=== PATIENT | female | born 1975 | race Caucasian/White ===

== ENCOUNTER 2017-08-27 21:22 | Emergency (ER) | payer BC ==
[2017-08-27] MEDS ORDERED: Sodium Chloride 0.9% 1,000 ML IV ONE (22:17)
[2017-08-27] MEDS ORDERED: Ketorolac 30 MG/ML SDV IVPUSH ONE (22:17)
[2017-08-27] MEDS ORDERED: methylPREDNISolone Sodium Succinate 125 MG/2 ML SDV IVPUSH ONE (22:17)
[2017-08-27] MEDS ORDERED: Sodium Chloride 0.9% 2.5 ML Syringe FLUSH PRN (22:17)
[2017-08-27] MEDS ORDERED: Sodium Chloride 0.9% 10 ML Syringe FLUSH PRN (22:17)
--- NOTE | 2017-08-27 22:22 | EDM.PDOC ---
ED HPI GENERAL MEDICAL PROBLEM - General Chief Complaint: Neuro Symptoms/Deficits Stated Complaint: TONGUE SWOLLEN/TIGHTNESS IN CHEST Time Seen by Provider: 08/27/17 22:04 - History of Present Illness INITIAL COMMENTS - FREE TEXT/NARRATIVE: HISTORY AND PHYSICAL: History of present illness: The patient is a 42-year-old female with no pre-existing medical problems who presents with symptoms that started yesterday; she said that yesterday she started having a sore throat and felt like it was scratchy and hard to swallow but she was able to eat or drink. Today she had less of a sore throat but as the day was going on she felt like her tongue was swollen and she removed her tongue ring she had no new meds or foods that could have triggered that. She also felt very rundown lightheaded and a little woozy and as the day progressed into the early evening she felt like her lips were tingling and swollen and burning in her hands were tingly. She then proceeded to develop some right- sided chest pain which is generalized on the right side and not any specific location and is without cough or shortness of breath and she says that she had a fever at home. The patient had no left-sided chest pain. She took Benadryl at about 7 PM. Patient has had no abdominal pain no nausea no vomiting or diarrhea and no urinary complaints. She denies and has regular periods. She has no head neck or back pain and did not pass out or blackout. She says she feels very drained and weak here. She admits she drinks mostly caffeinated products and does not hydrate well. Patient states she has never felt itchy or had any rashes with this tongue swelling. She takes no medications for blood pressure. Review of systems: As per history of present illness and below otherwise all systems reviewed and negative. Past medical history: As per history of present illness and as reviewed below otherwise noncontributory. Surgical history: As per history of present illness and as reviewed below otherwise noncontributory. Social history: No reported history of drug or alcohol abuse. Family history: As per history of present illness and as reviewed below otherwise noncontributory. Physical exam: Gen.: Well-developed well-nourished female who is nontoxic and vital signs have been reviewed by me HEENT: Atraumatic, normocephalic, pupils reactive, negative for conjunctival pallor or scleral icterus, mucous membranes moist, throat clear of exudates and there is only minimal oropharyngeal erythema in the posterior oropharynx, there is some shoddy anterior cervical adenopathy but no nuchal rigidity, there is some minimal tongue swelling more located in the central area of her tongue where her tongue ring would be, neck supple, nontender, trachea midline. Lungs: Clear to auscultation, breath sounds equal bilaterally, chest nontender. No wheezing stridor or worker breathing Heart: S1S2, regular rate and rhythm no overt murmurs Abdomen: Soft, nondistended, nontender. NABS Negative for costovertebral tenderness. Pelvis: Deferred Genitourinary: Deferred. Rectal: Deferred. Extremities: Atraumatic, negative for cords or calf pain. Neurovascular unremarkable. Neuro: Awake, alert, oriented. Cranial nerves II through XII unremarkable. Cerebellum unremarkable. Motor and sensory unremarkable throughout. Exam nonfocal. Skin: Normal turgor no evidence of any overt rashes or lesions Diagnostics: EKG chest x-ray CBC CMP UA rapid strep influenza swab lactic acid Therapeutics: IV, IV fluids, Toradol Solu-Medrol Patient took Benadryl 3 hours ago so I will not re-dose Patient fell asleep in the ED and was soundly sleeping when I woke her up she discussed the testing results. She is aware of all test results and that I have no explanation for all the symptoms that she has had. I've encouraged her to continue to take Benadryl [id number] for the next 24-36 hours for the swelling of her tongue and I've given her a dose of the steroids here. She follows with Blanca Juarez at [facility] and I've advised connecting with her and schedule a follow-up appointment and monitoring her symptoms. I've advised her on reasons to return to ED and to push hydration and rest. Impression: Lightheadedness/tongue swelling/generalized malaise/right-sided chest pain etiology unclear stable Definitive disposition and diagnosis as appropriate pending reevaluation and review of above. - Related Data Allergies Allergy/AdvReac Type Severity Reaction Status Date / Time drospirenone [From [facility] 28] Allergy Chest Pain Verified 08/27/17 21:48 ethinyl estradiol Allergy Chest Pain Verified 08/27/17 21:48 [From [facility] 28] Latex, Natural Rubber Allergy Rash Verified 08/27/17 21:48 seasonal/pets Allergy Cannot Uncoded 08/27/17 21:48 Remember trace metals Allergy Rash Uncoded 08/27/17 21:48 Home Meds: Home Meds Citalopram [Citalopram HBr] 20 mg PO BEDTIME PRN 08/27/17 [History] Past Medical History - Past Health History Medical/Surgical History: Denies Medical/Surgical History HEENT History: Reports: Impaired Vision, Sinusitis Respiratory History: Reports: Asthma Genitourinary History: Reports: Renal Calculus Neurological History: Reports: Migraines Other Neuro History: Classical migraine headache Psychiatric History: Reports: Anxiety, Panic Attack, PTSD Endocrine/Metabolic History: Reports: Hyperthyroidism - Infectious Disease History Infectious Disease History: Reports: Chicken Pox - Past Surgical History HEENT Surgical History: Reports: Laser Surgery, Other (See Below) Other HEENT Surgeries/Procedures: deviated septum surgery Social & Family History - Family History Family Medical History: Noncontributory - Tobacco Use Smoking Status *Q: Never Smoker Second Hand Smoke Exposure: No - Caffeine Use Caffeine Use: Reports: Coffee, Soda - Alcohol Use Days Per Week of Alcohol Use: 0 - Recreational Drug Use Recreational Drug Use: No ED ROS GENERAL - Review of Systems Review Of Systems: ROS reveals no pertinent complaints other than HPI. ED EXAM, GENERAL - Physical Exam Exam: See Below (See dictation) Course - Vital Signs Last Recorded V/S: Last Vital Signs Temp 36.9 C 08/27/17 22:18 Pulse 75 08/27/17 21:46 Resp 12 08/27/17 21:46 BP 117/84 08/27/17 21:46 Pulse Ox 98 08/27/17 21:46 - Orders/Labs/Meds Orders: Active Orders 24 hr Category Date Time Status EKG Documentation Completion [RC] STAT Care 08/27/17 21:57 Active Chest 2V [CR] Stat Exams 08/27/17 22:16 Taken CULTURE STREP A CONFIRMATION [RM] Stat Lab 08/27/17 22:20 Results STREP SCRN A RAPID W CULT CONF [RM] Stat Lab 08/27/17 22:20 Results Sodium Chloride 0.9% [Saline Flush] Med 08/27/17 22:17 Active 10 ml FLUSH ASDIRECTED PRN Sodium Chloride 0.9% [Saline Flush] Med 08/27/17 22:17 Active 2.5 ml FLUSH ASDIRECTED PRN Saline Lock Insert [OM.PC] Stat Oth 08/27/17 22:15 Ordered Medication Orders Sodium Chloride (Saline Flush) 10 ml FLUSH ASDIRECTED PRN PRN Reason: Keep Vein Open Last Admin: 08/27/17 22:43 Dose: 10 ml Sodium Chloride (Saline Flush) 2.5 ml FLUSH ASDIRECTED PRN PRN Reason: Keep Vein Open Last Admin: 08/27/17 22:43 Dose: 2.5 ml Labs: Laboratory Tests 08/27/17 08/27/17 08/27/17 Range/Units 22:20 22:20 22:20 WBC 9.11 (4.0-11.0) K/uL RBC 4.87 (4.30-5.90) M/uL Hgb 13.4 (12.0-16.0) g/dL Hct 39.6 (36.0-46.0) % MCV 81.3 (80.0-98.0) fL MCH 27.5 (27.0-32.0) pg MCHC 33.8 (31.0-37.0) g/dL RDW Std Deviation 38.9 (28.0-62.0) fl RDW Coeff of [place] 13 (11.0-15.0) % Plt Count 276 (150-400) K/uL MPV 9.40 (7.40-12.00) fL Neut % (Auto) 55.1 (48.0-80.0) % Lymph % (Auto) 34.7 (16.0-40.0) % [place] % (Auto) 8.9 (0.0-15.0) % Eos % (Auto) 1.1 (0.0-7.0) % Baso % (Auto) 0.2 (0.0-1.5) % Neut # (Auto) 5.0 (1.4-5.7) K/uL Lymph # (Auto) 3.2 H (0.6-2.4) K/uL [place] # (Auto) 0.8 (0.0-0.8) K/uL Eos # (Auto) 0.1 (0.0-0.7) K/uL Baso # (Auto) 0.0 (0.0-0.1) K/uL Nucleated RBC % 0.0 /100WBC Nucleated RBCs # 0 K/uL Lactate 0.7 (0.20-2.00) mmol/L Sodium 139 (136-145) mmol/L Potassium 3.7 (3.5-5.1) mmol/L Chloride 103 (98-107) mmol/L Carbon Dioxide 28.4 (21.0-32.0) mmol/L BUN 15 (7.0-18.0) mg/dL Creatinine 0.9 (0.6-1.0) mg/dL Est Cr Clr Drug Dosing 83.82 mL/min Estimated GFR (MDRD) > 60.0 ml/min Glucose 128 H (74-106) mg/dL Calcium 9.2 (8.5-10.1) mg/dL Total Bilirubin 0.5 (0.2-1.0) mg/dL AST 21 (15-37) IU/L ALT 32 (14-63) IU/L Alkaline Phosphatase 78 (46-116) U/L Total Protein 7.5 (6.4-8.2) g/dL Albumin 3.6 (3.4-5.0) g/dL Globulin 3.9 H (2.0-3.5) g/dL Albumin/Globulin Ratio 0.9 L (1.3-2.8) Urine Color Urine Appearance Urine pH (5.0-8.0) Ur Specific [place] (1.001-1.035) Urine Protein (NEGATIVE) mg/dL Urine Glucose (UA) (NEGATIVE) mg/dL Urine Ketones (NEGATIVE) mg/dL Urine Occult Blood (NEGATIVE) Urine Nitrite (NEGATIVE) Urine Bilirubin (NEGATIVE) Urine Urobilinogen (<2.0) EU/dL Ur Leukocyte Esterase (NEGATIVE) Urine RBC (0-2/HPF) Urine WBC (0-5/HPF) Ur Epithelial Cells (NONE-FEW) Urine Bacteria (NEGATIVE) 08/27/17 Range/Units 23:21 WBC (4.0-11.0) K/uL RBC (4.30-5.90) M/uL Hgb (12.0-16.0) g/dL Hct (36.0-46.0) % MCV (80.0-98.0) fL MCH (27.0-32.0) pg MCHC (31.0-37.0) g/dL RDW Std Deviation (28.0-62.0) fl RDW Coeff of [place] (11.0-15.0) % Plt Count (150-400) K/uL MPV (7.40-12.00) fL Neut % (Auto) (48.0-80.0) % Lymph % (Auto) (16.0-40.0) % [place] % (Auto) (0.0-15.0) % Eos % (Auto) (0.0-7.0) % Baso % (Auto) (0.0-1.5) % Neut # (Auto) (1.4-5.7) K/uL Lymph # (Auto) (0.6-2.4) K/uL [place] # (Auto) (0.0-0.8) K/uL Eos # (Auto) (0.0-0.7) K/uL Baso # (Auto) (0.0-0.1) K/uL Nucleated RBC % /100WBC Nucleated RBCs # K/uL Lactate (0.20-2.00) mmol/L Sodium (136-145) mmol/L Potassium (3.5-5.1) mmol/L Chloride (98-107) mmol/L Carbon Dioxide (21.0-32.0) mmol/L BUN (7.0-18.0) mg/dL Creatinine (0.6-1.0) mg/dL Est Cr Clr Drug Dosing mL/min Estimated GFR (MDRD) ml/min Glucose (74-106) mg/dL Calcium (8.5-10.1) mg/dL Total Bilirubin (0.2-1.0) mg/dL AST (15-37) IU/L ALT (14-63) IU/L Alkaline Phosphatase (46-116) U/L Total Protein (6.4-8.2) g/dL Albumin (3.4-5.0) g/dL Globulin (2.0-3.5) g/dL Albumin/Globulin Ratio (1.3-2.8) Urine Color YELLOW Urine Appearance CLEAR Urine pH 6.5 (5.0-8.0) Ur Specific [place] 1.010 (1.001-1.035) Urine Protein NEGATIVE (NEGATIVE) mg/dL Urine Glucose (UA) NEGATIVE (NEGATIVE) mg/dL Urine Ketones NEGATIVE (NEGATIVE) mg/dL Urine Occult Blood TRACE-INTACT (NEGATIVE) Urine Nitrite NEGATIVE (NEGATIVE) Urine Bilirubin NEGATIVE (NEGATIVE) Urine Urobilinogen 0.2 (<2.0) EU/dL Ur Leukocyte Esterase NEGATIVE (NEGATIVE) Urine RBC 1-2 (0-2/HPF) Urine WBC 0-2 (0-5/HPF) Ur Epithelial Cells FEW (NONE-FEW) Urine Bacteria FEW (NEGATIVE) Meds: Medications Generic Name Dose Route Start Last Admin Trade Name Freq PRN Reason Stop Dose Admin Sodium Chloride 10 ml 08/27/17 22:17 08/27/17 22:43 Saline Flush FLUSH 10 ml ASDIRECTED PRN Administration Keep Vein Open Sodium Chloride 2.5 ml 08/27/17 22:17 08/27/17 22:43 Saline Flush FLUSH 2.5 ml ASDIRECTED PRN Administration Keep Vein Open Discontinued Medications Generic Name Dose Route Start Last Admin Trade Name Freq PRN Reason Stop Dose Admin Sodium Chloride 1,000 mls @ 999 mls/hr 08/27/17 22:17 08/27/17 22:35 Normal Saline IV 08/27/17 23:17 999 mls/hr STAT ONE Administration Ketorolac Tromethamine 30 mg 08/27/17 22:17 08/27/17 22:40 Toradol IVPUSH 08/27/17 22:18 30 mg ONETIME ONE Administration Methylprednisolone Sodium Succinate 125 mg 08/27/17 22:17 08/27/17 22:42 Solu-Medrol IVPUSH 08/27/17 22:18 125 mg ONETIME ONE Administration Departure - Departure Time of Disposition: 23:50 Disposition: Home, Self-Care 01 Condition: Good Clinical Impression: Lightheadedness, Tongue swelling, Right-sided chest pain - Discharge Information Referrals: Dayanna Juarez NP [Primary Care Provider] - Forms: ED Department Discharge Additional Instructions: The following information is given to patients seen in the emergency department who are being discharged to home. This information is to outline your options for follow-up care. We provide all patients seen in our emergency department with a follow-up referral. The need for follow-up, as well as the timing and circumstances, are variable depending upon the specifics of your emergency department visit. If you don't have a primary care physician on staff, we will provide you with a referral. We always advise you to contact your personal physician following an emergency department visit to inform them of the circumstance of the visit and for follow-up with them and/or the need for any referrals to a consulting specialist. The emergency department will also refer you to a specialist when appropriate. This referral assures that you have the opportunity for followup care with a specialist. All of these measure are taken in an effort to provide you with optimal care, which includes your followup. Under all circumstances we always encourage you to contact your private physician who remains a resource for coordinating your care. When calling for followup care, please make the office aware that this follow-up is from your recent emergency room visit. If for any reason you are refused follow-up, please contact the [facility] emergency department at and ask to speak to the emergency department charge nurse. [address] [place] [address] [facility]- Internal Medicine and Family [address] [address] Please continue to take Benadryl every 6 hours for the next 24-36 hours for Swelling and monitor your other symptoms as we discussed. Please contact her provider at [facility] and schedule a follow-up appointment or connect with one of our providers to be seen in the next few days. Return to ER as needed and as discussed. - My Orders Last 24 Hours: My Active Orders 08/27/17 21:57 EKG Documentation Completion [RC] STAT 08/27/17 22:15 Saline Lock Insert [OM.PC] Stat 08/27/17 22:16 Chest 2V [CR] Stat 08/27/17 22:17 Sodium Chloride 0.9% [Saline Flush] 10 ml FLUSH ASDIRECTED PRN Sodium Chloride 0.9% [Saline Flush] 2.5 ml FLUSH ASDIRECTED PRN 08/27/17 22:20 CULTURE STREP A CONFIRMATION [RM] Stat STREP SCRN A RAPID W CULT CONF [] Stat - Assessment/Plan Last 24 Hours: My Active Orders 08/27/17 21:57 EKG Documentation Completion [RC] STAT 08/27/17 22:15 Saline Lock Insert [OM.PC] Stat 08/27/17 22:16 Chest 2V [CR] Stat 08/27/17 22:17 Sodium Chloride 0.9% [Saline Flush] 10 ml FLUSH ASDIRECTED PRN Sodium Chloride 0.9% [Saline Flush] 2.5 ml FLUSH ASDIRECTED PRN 08/27/17 22:20 CULTURE STREP A CONFIRMATION [RM] Stat STREP SCRN A RAPID W CULT CONF [RM] Stat
[2017-08-27 23:07] LABS: CHLORIDE,CL 103 mmol/L (98-107); SODIUM,NA 139 mmol/L (136-145)
[2017-08-28 00:06] VITALS: BP 100/68
--- NOTE | 2017-08-28 14:52 | CR ---
EXAM DATE: 08/27/17 PATIENT'S AGE: 42 Patient: DANIEL KIM Facility: [place], [place] Site . Site : [id number] Study: XRay Chest [id number]/8/[id number] 11:23:32 PM Ordering Physician: Mckenzie Nieves Final Report: INDICATION: Right-sided chest pain with dizziness and swelling tongue TECHNIQUE: Chest 2 views. COMPARISON: March 26, 2016 FINDINGS: Cardiovascular and mediastinum: Heart size and vasculature are normal in caliber and appearance. Mediastinum is within normal limits. Lungs and pleural spaces: Lungs are clear. No sign of infiltrate or mass. No sign of pleural effusion. No pneumothorax. Bones and soft tissues: No significant findings. IMPRESSION: No sign of acute disease. Dictated by Emilia Cheng MD @ Aug 27 2017 11:25PM (Electronic Signature) Report Signed by Proxy. PARAMJIT
== END 2017-08-28 00:07 | disposition home or self-care (01) ==
LOC: MW.ED 21:22
DX: R07.9 Chest pain, unspecified (principal); K14.8 Other diseases of tongue; R42 Dizziness and giddiness; R53.81 Other malaise; F41.0 Panic disorder [episodic paroxysmal anxiety]; Z91.040 Latex allergy status; Z88.8 Allergy status to other drugs, medicaments and biological substances; Z91.09 Other allergy status, other than to drugs and biological substances
CPT/HCPCS: 36415; 71046; 80053; 81001; 83605; 85025; 87081; 87804; 87880; 93005; 96361; 96374; 96375; 99284; J1885; J2930; J7040; 99283

== ENCOUNTER 2019-09-20 14:29 | Emergency (ER) | payer BC, OTHER ==
[2019-09-20] MEDS ORDERED: Ketorolac 30 MG/ML SDV IM ONE (15:09)
--- NOTE | 2019-09-20 15:13 | EDM.PDOC ---
ED HPI GENERAL MEDICAL PROBLEM - General Chief Complaint: General Stated Complaint: SOB,CHESTPAIN,FEVER Time Seen by Provider: 09/20/19 15:14 Source of Information: Reports: Patient, EMS History Limitations: Reports: No Limitations - History of Present Illness INITIAL COMMENTS - FREE TEXT/NARRATIVE: 44-year-old female who presents to the emergency room chief complaint of chills , cough and sore throat. Patient states for the last few days she has been having sore throat seems to improve with zinc lozenges but is persisted. Getting more short of breath so she came to the hospital Onset: Today Duration: Getting Worse Location: Reports: Chest Severity: Mild Associated Symptoms: Reports: No Other Symptoms headache Pain Score (Numeric/FACES): 5 - Related Data Allergies Allergy/AdvReac Type Severity Reaction Status Date / Time drospirenone [From [facility] [place]] Allergy Chest Pain Verified 09/20/19 14:33 ethinyl estradiol Allergy Chest Pain Verified 09/20/19 14:33 [From [facility] ] Latex, Natural Rubber Allergy Rash Verified 09/20/19 14:33 seasonal/pets Allergy Cannot Uncoded 09/20/19 14:33 Remember trace metals Allergy Rash Uncoded 09/20/19 14:33 Home Meds: Home Meds Cyclobenzaprine [Flexeril] 10 mg PO TID PRN 5 Days #15 tab 04/07/18 [Rx] Diclofenac Sodium [Voltaren] 75 mg PO ASDIRECTED PRN 04/07/18 [History] LORazepam [Ativan] 1 tab PO ASDIRECTED PRN 04/07/18 [History] Fluticasone Propionate [Flonase] 16 gm NS DAILY 09/20/19 [History] Past Medical History - Past Health History Medical/Surgical History: Denies Medical/Surgical History HEENT History: Reports: Impaired Vision, Sinusitis Respiratory History: Reports: Asthma Genitourinary History: Reports: Renal Calculus Neurological History: Reports: Migraines Other Neuro History: Classical migraine headache Psychiatric History: Reports: Anxiety, Panic Attack, PTSD Endocrine/Metabolic History: Reports: Hyperthyroidism - Infectious Disease History Infectious Disease History: Reports: Chicken Pox, Herpes Other Infectious Disease History: herpes simplex 1 - Past Surgical History HEENT Surgical History: Reports: Laser Surgery, Other (See Below) Other HEENT Surgeries/Procedures: deviated septum surgery Social & Family History - Family History Family Medical History: Noncontributory - Tobacco Use Smoking Status *Q: Never Smoker - Caffeine Use Caffeine Use: Reports: Coffee - Recreational Drug Use Recreational Drug Use: No ED ROS GENERAL - Review of Systems Review Of Systems: See Below Constitutional: Reports: No Symptoms, Fever, Chills HEENT: Reports: No Symptoms, Ear Pain Respiratory: Reports: No Symptoms, Shortness of Breath Cardiovascular: Reports: No Symptoms, Dyspnea on Exertion Endocrine: Reports: No Symptoms GI/Abdominal: Reports: No Symptoms : Reports: No Symptoms Musculoskeletal: Reports: No Symptoms, Neck Pain Skin: Reports: No Symptoms Neurological: Reports: No Symptoms Psychiatric: Reports: No Symptoms Hematologic/Lymphatic: Reports: No Symptoms Immunologic: Reports: No Symptoms ED EXAM, GENERAL - Physical Exam Exam: See Below Exam Limited By: No Limitations General Appearance: Alert, WD/WN, No Apparent Distress Eye Exam: Bilateral Eye: Normal Fundi, Normal Inspection Ears: Normal External Exam, Normal Canal, Hearing Grossly Normal, Normal TMs Ear Exam: Bilateral Ear: Auricle Normal, Canal Normal, TM normal Nose: Normal Inspection, Normal Mucosa, No Blood Throat/Mouth: Normal Inspection, Normal Lips, Normal Teeth, Normal Gums Head: Atraumatic, Normocephalic Neck: Normal Inspection, Supple, Non-Tender Respiratory/Chest: No Respiratory Distress, Lungs Clear, Normal Breath Sounds Cardiovascular: Normal Peripheral Pulses, Regular Rate, Rhythm, No Edema GI/Abdominal: Normal Bowel Sounds, Soft, Non-Tender (Female) Exam: Deferred Rectal (Female) Exam: Deferred Back Exam: Normal Inspection, Full Range of Motion Extremities: Normal Inspection, Normal Range of Motion Neurological: Alert, Oriented, CN II-XII Intact, Normal Cognition, Normal Reflexes, No Motor/Sensory Deficits Psychiatric: Normal Affect, Normal Mood Skin Exam: Warm, Dry, Intact, Normal Color Lymphatic: No Adenopathy Course - Vital Signs Text/Narrative:: This 44-year-old female presents the emergency room with shortness of breath and cough. Patient states she has had a low-grade fever. Patient's chest x- ray is normal patient's test for strep and influenza are also negative. Patient 's pending COV antibody test We will treat the patient for bronchitis and have the patient follow-up with primary care physician. Last Recorded V/S: Last Vital Signs Temp 98.2 F 09/20/19 14:34 Pulse 71 09/20/19 15:38 Resp 18 09/20/19 15:38 BP 121/72 09/20/19 15:38 Pulse Ox 97 09/20/19 15:38 - Orders/Labs/Meds Orders: Active Orders 24 hr Category Date Time Status EKG 12 Lead [EKG Documentation Completion] [RC] STAT Care 09/20/19 14:36 Active CORONAVIRUS COVID-19 PCR PHL [MREF] Stat Lab 09/20/19 15:31 Received CULTURE STREP A CONFIRMATION [RM] Stat Lab 09/20/19 15:31 Results STREP SCRN A RAPID W CULT CONF [RM] Stat Lab 09/20/19 15:31 Results Isolation [COMM] Routine Oth 09/20/19 15:07 Active Labs: Laboratory Tests 09/20/19 09/20/19 Range/Units 15:17 15:17 WBC 8.39 (4.0-11.0) K/uL RBC 4.93 (4.30-5.90) M/uL Hgb 13.2 (12.0-16.0) g/dL Hct 40.7 (36.0-46.0) % MCV 82.6 (80.0-98.0) fL MCH 26.8 L (27.0-32.0) pg MCHC 32.4 (31.0-37.0) g/dL RDW Std Deviation 39.1 (28.0-62.0) fl RDW Coeff of [place] 13 (11.0-15.0) % Plt Count 267 (150-400) K/uL MPV 9.50 (7.40-12.00) fL Neut % (Auto) 54.0 (48.0-80.0) % Lymph % (Auto) 37.8 (16.0-40.0) % [place] % (Auto) 7.3 (0.0-15.0) % Eos % (Auto) 0.7 (0.0-7.0) % Baso % (Auto) 0.2 (0.0-1.5) % Neut # (Auto) 4.5 (1.4-5.7) K/uL Lymph # (Auto) 3.2 H (0.6-2.4) K/uL [place] # (Auto) 0.6 (0.0-0.8) K/uL Eos # (Auto) 0.1 (0.0-0.7) K/uL Baso # (Auto) 0.0 (0.0-0.1) K/uL Nucleated RBC % 0.0 /100WBC Nucleated RBCs # 0 K/uL Sodium 139 (136-145) mmol/L Potassium 4.1 (3.5-5.1) mmol/L Chloride 102 (98-107) mmol/L Carbon Dioxide 25.3 (21.0-32.0) mmol/L BUN 18 (7.0-18.0) mg/dL Creatinine 0.9 (0.6-1.0) mg/dL Est Cr Clr Drug Dosing 79.19 mL/min Estimated GFR (MDRD) > 60.0 ml/min Glucose 107 H (74-106) mg/dL Calcium 9.4 (8.5-10.1) mg/dL Total Bilirubin 0.5 (0.2-1.0) mg/dL AST 20 (15-37) IU/L ALT 30 (14-63) IU/L Alkaline Phosphatase 74 (46-116) U/L Total Protein 7.7 (6.4-8.2) g/dL Albumin 3.6 (3.4-5.0) g/dL Globulin 4.1 H (2.6-4.0) g/dL Albumin/Globulin Ratio 0.9 (0.9-1.6) Meds: Medications Discontinued Medications Generic Name Dose Route Start Last Admin Trade Name Freq PRN Reason Stop Dose Admin Ketorolac Tromethamine 30 mg 09/20/19 15:09 09/20/19 15:32 Toradol IM 09/20/19 15:10 30 mg ONETIME ONE Administration Departure - Departure Time of Disposition: 16:57 Disposition: Home, Self-Care 01 Condition: Good Clinical Impression: Bronchitis - Discharge Information Instructions: Upper Respiratory Infection, Adult, [id number] Referrals: PCP,None [Primary Care Provider] - Forms: ED Department Discharge Additional Instructions: Take medication as prescribed azithromycin Follow-up with your primary care physician Please self quarantine until your results are completely back Sepsis Event Note - Evaluation Sepsis Screening Result: No Definite Risk - Focused Exam Vital Signs: Vital Signs Temp Pulse Resp BP Pulse Ox 09/20/19 15:38 71 18 121/72 97 09/20/19 14:34 98.2 F 86 17 145/83 H 98 Date Exam was Performed: 09/20/19 Time Exam was Performed: 16:52 - My Orders Last 24 Hours: My Active Orders 09/20/19 14:36 EKG 12 Lead [EKG Documentation Completion] [RC] STAT 09/20/19 15:07 Isolation [COMM] Routine 09/20/19 15:31 CORONAVIRUS COVID-19 PCR PHL [MREF] Stat CULTURE STREP A CONFIRMATION [RM] Stat STREP SCRN A RAPID W CULT CONF [RM] Stat - Assessment/Plan Last 24 Hours: My Active Orders 09/20/19 14:36 EKG 12 Lead [EKG Documentation Completion] [RC] STAT 09/20/19 15:07 Isolation [COMM] Routine 09/20/19 15:31 CORONAVIRUS COVID-19 PCR PHL [MREF] Stat CULTURE STREP A CONFIRMATION [RM] Stat STREP SCRN A RAPID W CULT CONF [RM] Stat
[2019-09-20 15:57] LABS: BLOOD UREA NITROGEN,BUN 18 mg/dL (7.0-18.0); CARBON DIOXIDE,CO2 25.3 mmol/L (21.0-32.0); CHLORIDE,CL 102 mmol/L (98-107); GLUCOSE RANDOM 107 mg/dL (74-106); POTASSIUM,K 4.1 mmol/L (3.5-5.1); SODIUM,NA 139 mmol/L (136-145)
--- NOTE | 2019-09-20 16:19 | CR ---
Chest: Portable view of the chest was obtained. Comparison: Prior chest x-ray of 04/07/18. Heart size and mediastinum are normal. Nodular type density is noted within the right lung base which is believed to be stable from prior chest x-ray as well as seen on prior chest CT of 12/15/13. Lungs show no acute parenchymal change. Bony structures show nothing acute. Impression: 1. Stable nodule. 2. Nothing acute is seen on portable chest x-ray. Diagnostic code #2 Study was dictated in MDT
[2019-09-20] MEDS ORDERED: Azithromycin 100 MG/5 ML Susp 15 ML Bottle PO ONE (17:00)
[2019-09-20] MEDS ORDERED: Azithromycin 500 MG Vial IV ONE (17:00)
[2019-09-20] MEDS ORDERED: Azithromycin 250 MG Tab PO ONE (17:30)
[2019-09-20 17:58] VITALS: BP 110/71; PULSE 62
== END 2019-09-20 17:24 | disposition home or self-care (01) ==
LOC: MW.ED 14:29
DX: J40 Bronchitis, not specified as acute or chronic (principal); F41.9 Anxiety disorder, unspecified; Z88.8 Allergy status to other drugs, medicaments and biological substances; Z91.040 Latex allergy status; Z79.899 Other long term (current) drug therapy
CPT/HCPCS: 36415; 71045; 80053; 85025; 87081; 87635; 87804; 87880; 93005; 96372; 99285; A9270; J1885; 99283; U0002

== ENCOUNTER 2020-04-12 11:44 | Emergency (ER) | payer BC ==
--- NOTE | 2020-04-12 11:54 | PCM.SN.2 ---
- Free Text/Narrative Note: 12-Lead ECG Interpretation Acquired: 11:47 AM Rhythm: Sinus arrhythmia Rate: 67 bpm [place]: Normal Intervals: Normal Ectopy: None RV Strain: No obvious RV strain pattern. ST Segments/T-Waves: No notable changes Acute Ischemic Changes: None apparent Interpretation: No STEMI
[2020-04-12] MEDS ORDERED: Sodium Chloride 0.9% 10 ML Syringe FLUSH PRN (12:12)
[2020-04-12] MEDS ORDERED: Sodium Chloride 0.9% 2.5 ML Syringe FLUSH PRN (12:12)
[2020-04-12 12:29] LABS: BLOOD UREA NITROGEN,BUN 19 mg/dL (7.0-18.0); CARBON DIOXIDE,CO2 30.5 mmol/L (21.0-32.0); CHLORIDE,CL 104 mmol/L (98-107); GLUCOSE RANDOM 116 mg/dL (74-106); POTASSIUM,K 3.6 mmol/L (3.5-5.1); SODIUM,NA 139 mmol/L (136-145)
[2020-04-12] MEDS ORDERED: oxyCODONE 5 MG Tab PO ONE (12:55)
--- NOTE | 2020-04-12 12:59 | CR ---
INDICATION: Chest pain COMPARISON: September 20, 2019 TECHNIQUE: PA and lateral views of the chest were acquired FINDINGS: TUBES AND LINES: None. HEART AND MEDIASTINUM: The heart size is normal. The mediastinal contour appears normal for patient age. LUNGS AND PLEURAL SPACES: The lungs appear normal.There pleural spaces are unremarkable. OSSEOUS STRUCTURES: Age-appropriate appearance. No acute focal finding. IMPRESSION: No evidence of active pulmonary disease. Dictated by Kaveh Troy MD @ Apr 12 2020 12:56PM Signed by Dr. Kaveh Troy @ Apr 12 2020 12:57PM
--- NOTE | 2020-04-12 13:21 | EDM.PDOC ---
ED [facility] GENERAL MEDICAL PROBLEM - General Chief Complaint: Chest Pain Stated Complaint: NASAL SURGERY COMPLICATIONS Time Seen by Provider: 04/12/20 11:47 Source of Information: Reports: Patient, Old Records History Limitations: Reports: No Limitations - History of Present Illness INITIAL COMMENTS - FREE TEXT/NARRATIVE: This is a very pleasant 45-year-old female with a past medical history of generalized anxiety disorder and seasonal allergies presenting with chest pain and shortness of breath. Patient is postop day #2 status post septoplasty and turbinate surgery performed in [place], [place]. She was reportedly under general anesthesia. She was able to go home from the hospital on the same day of surgery. The next day, she began developing substernal chest pain described as "pressure". At the same time she began developing pain just to the right of the midline of her low anterior neck. The pain in her chest or neck is somewhat worse when she is lying flat, and she states that the pain has been worsening throughout the morning which made her come to the ER. She states that there was no surgical procedure performed on her neck. She does complain of some pain with movement of the neck. She complains of some mild shortness of breath. She reports subjective fever at home but her temperature has not been above 100.0 Fahrenheit. She denies any voice changes, difficulty swallowing fluids, headache, hemoptysis, leg swelling, recent immobilization with a cast or splint, or recent long travel. No personal history of venous thromboembolism. No history of coronary artery disease. ROS: A 10-point review of systems was negative, except as noted in the HPI (or in the ROS section of this note). Past medical history: Reviewed, no additional pertinent history. Surgical history: Reviewed in system, no additional pertinent history. Social history: Reviewed in system, no additional pertinent history. Family history: Reviewed in system, no additional pertinent history. PHYSICAL EXAM Vital signs reviewed. Nursing notes reviewed. Constitutional: Awake, alert, non-distressed. Head: Normocephalic, atraumatic. Eyes: EOMI, conjunctiva normal, no discharge, no scleral icterus. Pupils 3 L bilaterally. Neck: Mild tenderness to the anterior neck just to the right of midline in the caudal aspect of the neck. Active range of motion somewhat limited due to pain. No posterior tenderness to palpation. Ears, Nose, Throat: External ears and, moist oral mucosa. Mild mucus discharge in the nares, dried blood around the right nare. Uvula midline. Normal voice. Cardiovascular: 2+ radial pulse, capillary refill less than 2 seconds. No lower extremity edema. Pulmonary: normal work of breathing, no accessory muscle use. Abdomen/GI: Soft, nontender, nondistended, no guarding or rigidity, no masses. Musculoskeletal: No deformities. Integumentary: Appropriate color for ethnicity, warm, dry, no pallor or jaundice, no rash. Neurologic: Alert, answering questions appropriately, normal speech, no facial droop, moving all extremities well. Psychiatric: Appropriate mood and affect, normal thought process. Chest Pain Score (Numeric/FACES): 6 - Related Data Allergies Allergy/AdvReac Type Severity Reaction Status Date / Time drospirenone [From [facility]] Allergy Chest Pain Verified 04/12/20 11:56 ethinyl estradiol Allergy Chest Pain Verified 04/12/20 11:56 [From [facility]] Latex, Natural Rubber Allergy Rash Verified 04/12/20 11:56 seasonal/pets Allergy Cannot Uncoded 04/12/20 11:56 Remember trace metals Allergy Rash Uncoded 04/12/20 11:56 Home Meds: Home Meds Fluticasone Propionate [Flonase] 16 gm NS DAILY 09/20/19 [History] Past Medical History - Past Health History Medical/Surgical History: Denies Medical/Surgical History HEENT History: Reports: Impaired Vision, Sinusitis Respiratory History: Reports: Asthma Genitourinary History: Reports: Renal Calculus Neurological History: Reports: Migraines Other Neuro History: Classical migraine headache Psychiatric History: Reports: Anxiety, Panic Attack, PTSD Endocrine/Metabolic History: Reports: Hyperthyroidism - Infectious Disease History Infectious Disease History: Reports: None Other Infectious Disease History: herpes simplex 1 - Past Surgical History HEENT Surgical History: Reports: Laser Surgery, Other (See Below) Other HEENT Surgeries/Procedures: deviated septum surgery. Nasal stents placed Social & Family History - Family History Family Medical History: Noncontributory - Tobacco Use Tobacco Use Status *Q: Unknown Ever Used Tobacco Second Hand Smoke Exposure: Yes - Caffeine Use Caffeine Use: Reports: Coffee - Recreational Drug Use Recreational Drug Use: No ED ROS GENERAL - Review of Systems Review Of Systems: See Below ED EXAM, GENERAL - Physical Exam Exam: See Below Course - Vital Signs Text/Narrative:: 44-year-old female presenting with 2-day history of substernal chest pain and right-sided anterior neck pain. Recently status post septoplasty and turbinate surgery. Patient hemodynamically stable, afebrile, well-appearing, looks nontoxic. Differential diagnosis includes but is not limited to: Retropharyngeal abscess, surgical complication, less likely meningitis, viral URI, acute coronary syndrome, pulmonary embolism, pneumothorax, pneumonia, and many others. 1:21 PM: Chest x-ray is clear. CBC shows normal cell lines. INR is normal. Mild creatinine elevation at 1.1. Normal LFTs, negative troponin with 2 days of chest discomfort, negative test. We are going to obtain a CT scan of the neck and a CT pulmonary angiogram. Ordered oxycodone for pain. 3:41 PM: CT scan of the neck and soft tissues demonstrates mild diffuse enlargement of the thyroid gland, otherwise no acute findings. I added on a TSH to the blood work. CT pulmonary angiogram demonstrates a 12 mm right middle lobe nodule that is characteristically benign, and an indeterminate but likely benign left lower lobe nodule which is 4 mm in size, radiologist did recommend outpatient follow-up in 12 months with a repeat CT. patient is resting comfortably. I counseled her about the left lower lobe pulmonary nodule and need for outpatient follow-up. 5:12 PM: TSH is mildly elevated at 4.02. This is not consistent with hyperthyroidism. I considered a wide range of differentials for the patient's chest pain. There is no objective evidence of myocardial ischemia, with negative cardiac biomarker testing and nonischemic EKG. HEART score is 0. Her CT pulmonary angiogram is negative for pulmonary embolism and did not demonstrate pneumothorax, bone infiltrate, pleural effusion, etc. She has not hypoxic and is breathing comfortably on room air. The CT scan of her neck did not demonstrate any infectious etiology or obvious surgical complication. It did demonstrate mild thyroiditis, although her TSH is mildly elevated. She is phonating normally and handling secretions without difficulty. She appears to be breathing easily on room air. She is feeling better after the oxycodone. At this point, her work-up is essentially negative and she is stable to discharge home with outpatient primary care follow-up. We did discuss continuing her current pain medication regimen. She is already taking oxycodone. I encouraged close follow-up with her primary care physician for reevaluation of the chest pain and work-up of the pulmonary nodule and neck pain. As a recommended that she follow-up closely with her ENT surgeon for routine postop care. Plan: Patient is stable to discharge home with outpatient primary care clinic follow-up. Strict emergency department return precautions were provided, patient indicated understanding. All questions were answered prior to departure. Discharged in good condition. HEART Score for Major Cardiac Events RESULT SUMMARY: 0 points Low Score (0-3 points) Risk of MACE of 0.9-1.7%. INPUTS: History > 0 = Slightly suspicious EKG > 0 = Normal Age > 0 = <45 Risk factors > 0 = No known risk factors Initial troponin > 0 = ?normal limit Last Recorded V/S: Last Vital Signs Temp 36.0 C L 04/12/20 11:57 Pulse 50 L 04/12/20 16:46 Resp 16 04/12/20 14:37 BP 93/56 L 04/12/20 16:46 Pulse Ox 97 04/12/20 16:46 - Orders/Labs/Meds Orders: Active Orders 24 hr Category Date Time Status EKG Documentation Completion [RC] STAT Care 04/12/20 12:12 Active Sodium Chloride 0.9% [Saline Flush] Med 04/12/20 12:12 Active 10 ml FLUSH ASDIRECTED PRN Sodium Chloride 0.9% [Saline Flush] Med 04/12/20 12:12 Active 2.5 ml FLUSH ASDIRECTED PRN Saline Lock Insert [OM.PC] Stat Oth 04/12/20 12:12 Ordered Medication Orders Sodium Chloride (Saline Flush) 10 ml FLUSH ASDIRECTED PRN PRN Reason: Keep Vein Open Last Admin: 04/12/20 12:38 Dose: 10 ml Documented by: MURDNIC Sodium Chloride (Saline Flush) 2.5 ml FLUSH ASDIRECTED PRN PRN Reason: Keep Vein Open Last Admin: 04/12/20 12:38 Dose: 2.5 ml Documented by: FILI Labs: Laboratory Tests 04/12/20 04/12/20 04/12/20 Range/Units 11:48 11:48 11:48 WBC 8.21 (4.0-11.0) K/uL RBC 4.90 (4.30-5.90) M/uL Hgb 13.3 (12.0-16.0) g/dL Hct 41.6 (36.0-46.0) % MCV 84.9 (80.0-98.0) fL MCH 27.1 (27.0-32.0) pg MCHC 32.0 (31.0-37.0) g/dL RDW Std Deviation 41.3 (28.0-62.0) fl RDW Coeff of [place] 14 (11.0-15.0) % Plt Count 296 (150-400) K/uL MPV 10.00 (7.40-12.00) fL Neut % (Auto) 57.2 (48.0-80.0) % Lymph % (Auto) 37.6 (16.0-40.0) % [place] % (Auto) 4.4 (0.0-15.0) % Eos % (Auto) 0.6 (0.0-7.0) % Baso % (Auto) 0.2 (0.0-1.5) % Neut # (Auto) 4.7 (1.4-5.7) K/uL Lymph # (Auto) 3.1 H (0.6-2.4) K/uL [place] # (Auto) 0.4 (0.0-0.8) K/uL Eos # (Auto) 0.1 (0.0-0.7) K/uL Baso # (Auto) 0.0 (0.0-0.1) K/uL Nucleated RBC % 0.0 /100WBC Nucleated RBCs # 0 K/uL INR 0.95 Sodium 139 (136-145) mmol/L Potassium 3.6 (3.5-5.1) mmol/L Chloride 104 (98-107) mmol/L Carbon Dioxide 30.5 (21.0-32.0) mmol/L BUN 19 H (7.0-18.0) mg/dL Creatinine 1.1 H (0.6-1.0) mg/dL Est Cr Clr Drug Dosing 66.52 mL/min Estimated GFR (MDRD) 54.2 ml/min Glucose 116 H (74-106) mg/dL Calcium 9.1 (8.5-10.1) mg/dL Total Bilirubin 0.4 (0.2-1.0) mg/dL AST 16 (15-37) IU/L ALT 25 (14-63) IU/L Alkaline Phosphatase 67 (46-116) U/L Troponin I < 0.050 (0.000-0.056) ng/mL Total Protein 7.7 (6.4-8.2) g/dL Albumin 3.7 (3.4-5.0) g/dL Globulin 4.0 (2.6-4.0) g/dL Albumin/Globulin Ratio 0.9 (0.9-1.6) TSH 3rd Generation (0.36-3.74) uIU/mL HCG, Qual (NEG) 04/12/20 04/12/20 Range/Units 11:48 11:48 WBC (4.0-11.0) K/uL RBC (4.30-5.90) M/uL Hgb (12.0-16.0) g/dL Hct (36.0-46.0) % MCV (80.0-98.0) fL MCH (27.0-32.0) pg MCHC (31.0-37.0) g/dL RDW Std Deviation (28.0-62.0) fl RDW Coeff of [place] (11.0-15.0) % Plt Count (150-400) K/uL MPV (7.40-12.00) fL Neut % (Auto) (48.0-80.0) % Lymph % (Auto) (16.0-40.0) % [place] % (Auto) (0.0-15.0) % Eos % (Auto) (0.0-7.0) % Baso % (Auto) (0.0-1.5) % Neut # (Auto) (1.4-5.7) K/uL Lymph # (Auto) (0.6-2.4) K/uL [place] # (Auto) (0.0-0.8) K/uL Eos # (Auto) (0.0-0.7) K/uL Baso # (Auto) (0.0-0.1) K/uL Nucleated RBC % /100WBC Nucleated RBCs # K/uL INR Sodium (136-145) mmol/L Potassium (3.5-5.1) mmol/L Chloride (98-107) mmol/L Carbon Dioxide (21.0-32.0) mmol/L BUN (7.0-18.0) mg/dL Creatinine (0.6-1.0) mg/dL Est Cr Clr Drug Dosing mL/min Estimated GFR (MDRD) ml/min Glucose (74-106) mg/dL Calcium (8.5-10.1) mg/dL Total Bilirubin (0.2-1.0) mg/dL AST (15-37) IU/L ALT (14-63) IU/L Alkaline Phosphatase (46-116) U/L Troponin I (0.000-0.056) ng/mL Total Protein (6.4-8.2) g/dL Albumin (3.4-5.0) g/dL Globulin (2.6-4.0) g/dL Albumin/Globulin Ratio (0.9-1.6) TSH 3rd Generation 4.02 H (0.36-3.74) uIU/mL HCG, Qual NEGATIVE (NEG) Meds: Medications Generic Name Dose Route Start Last Admin Trade Name Freq PRN Reason Stop Dose Admin Sodium Chloride 10 ml 04/12/20 12:12 04/12/20 12:38 Saline Flush FLUSH 10 ml ASDIRECTED PRN Administration Keep Vein Open Sodium Chloride 2.5 ml 04/12/20 12:12 04/12/20 12:38 Saline Flush FLUSH 2.5 ml ASDIRECTED PRN Administration Keep Vein Open Discontinued Medications Generic Name Dose Route Start Last Admin Trade Name Freq PRN Reason Stop Dose Admin Acetaminophen 1,000 mg 04/12/20 14:00 04/12/20 14:32 Tylenol Extra Strength PO 04/12/20 14:01 1,000 mg ONETIME ONE Administration Lidocaine 700 mg 04/12/20 14:00 04/12/20 14:32 Lidoderm 5% TOP 04/12/20 14:01 700 mg ONETIME ONE Administration Oxycodone HCl 10 mg 04/12/20 12:55 04/12/20 13:07 Oxycodone PO 04/12/20 12:56 10 mg ONETIME ONE Administration Departure - Departure Time of Disposition: 17:22 Disposition: Home, Self-Care 01 Condition: Good Clinical Impression: Pulmonary nodule, Abnormal chest CT, Acute neck pain, Atypical chest pain Referrals: [facility] [Provider Group] - 1 Week (For follow-up of symptoms. For follow-up of abnormal chest CT/pulmonary nodule.) Forms: ED Department Discharge Additional Instructions: The CT scan of your lungs demonstrated a 4 mm pulmonary nodule which needs to be followed up on by a primary care doctor, will likely need a repeat chest CT in 12 months to make sure that it is not growing, is likely benign and not a tumor. We did not see any evidence of blood clot in your lungs on the CT scan. The CT scan of your neck demonstrated a mild inflammation around the thyroid gland, which is nonspecific. Your TSH level (thyroid hormone) was slightly elevated and this can be rechecked by your primary doctor. The CT scan of your neck otherwise did not show any acute or concerning findings. Your blood work is reassuring. Please follow-up with your primary doctor the next 3 to 5 days for reevaluation of the neck pain, chest pain, and for further care of the pulmonary nodule. You can continue taking the acetaminophen and oxycodone as prescribed. You could also consider adding ibuprofen if your ENT surgeon agrees given the recent surgery. Warning signs to come back to the ER include worsening pain, shortness of breath, trouble breathing, worsening chest pain, facial or neck swelling, fever of 100.4 or higher, or any other new or concerning symptoms. Please return the emergency department immediately if your symptoms worsen or if you feel worse. Thank you for choosing the [facility] emergency department in [place] for your medical needs today. It was a pleasure caring for you. The following information is given to patients seen in the emergency department who are being discharged. This information is to outline your options for follow-up care. We provide all patients seen in our emergency department with a follow-up referral. The need for follow-up, as well as the timing and circumstances, are variable depending upon the specifics of your emergency department visit. If you don't have a primary care physician on staff, we will provide you with a referral. We always advise you to contact your personal physician following an emergency department visit to inform them of the circumstance of the visit and for follow-up with them and/or the need for any referrals to a consulting specialist. The emergency department will also refer you to a specialist when appropriate. This referral assures that you have the opportunity for follow-up care with a specialist. All of these measure are taken in an effort to provide you with optimal care, which includes your follow-up. Under all circumstances we always encourage you to contact your private physician who remains a resource for coordinating your care. When calling for follow-up care, please make the office aware that this follow-up is from your recent emergency room visit. If for any reason you are refused follow-up, please contact the [facility] Emergency Department at and asked to speak to the emergency department charge nurse. If you do not have a primary care physician that is caring for you, you can contact these clinics below to set up an appointment to establish care: [facility] - Primary [facility] [address] [place] [address] [facility] [address] [place] [id number] Sepsis Event Note (ED) - Evaluation Sepsis Screening Result: No Definite Risk - Focused Exam Vital Signs: Vital Signs Temp Pulse Resp BP Pulse Ox 04/12/20 16:46 50 L 93/56 L 97 04/12/20 16:22 53 L 101/67 97 04/12/20 15:40 58 L 96 04/12/20 14:37 55 L 16 104/66 96 04/12/20 13:11 63 15 100/70 95 04/12/20 12:00 63 15 95 04/12/20 11:57 36.0 C L 62 18 139/88 96 - My Orders Last 24 Hours: My Active Orders 04/12/20 12:12 EKG Documentation Completion [RC] STAT Sodium Chloride 0.9% [Saline Flush] 10 ml FLUSH ASDIRECTED PRN Sodium Chloride 0.9% [Saline Flush] 2.5 ml FLUSH ASDIRECTED PRN Saline Lock Insert [OM.PC] Stat - Assessment/Plan Last 24 Hours: My Active Orders 04/12/20 12:12 EKG Documentation Completion [RC] STAT Sodium Chloride 0.9% [Saline Flush] 10 ml FLUSH ASDIRECTED PRN Sodium Chloride 0.9% [Saline Flush] 2.5 ml FLUSH ASDIRECTED PRN Saline Lock Insert [OM.PC] Stat
[2020-04-12] MEDS ORDERED: Lidocaine 5% 700 MG Patch TOP ONE (14:00)
[2020-04-12] MEDS ORDERED: Acetaminophen 500 MG Tab PO ONE (14:00)
--- NOTE | 2020-04-12 15:02 | CT ---
INDICATION: Chest pain. Recent general anesthesia. COMPARISON: No prior chest CT TECHNIQUE: : CT examination of the chest was performed with the uneventful intravenous administration of 100 cc of Isovue 3 7 while thin axial sections were obtained from above the apices of the lungs to the lung bases. Please note that all CT scans at this facility use dose modulation, iterative reconstruction, and/or weight-based dosing when appropriate to reduce radiation dose to as low as reasonably achievable. FINDINGS: : HEART and MEDIASTINUM: The heart size is normal. There is no mediastinal or hilar adenopathy or mass. There is no pericardial effusion.There is a small hiatal hernia PULMONARY ARTERIAL CIRCULATION: There is no visible intraluminal filling defect to suggest pulmonary embolus. LUNGS: Bibasilar dependent change likely atelectasis. There is a 12 millimeter nodule in the right middle lobe central calcification consistent with a granuloma or hamartoma. There is a 4 millimeter nodule at the left base on axial image 62 of 88. Such a nodule generally does not require follow-up except in high-risk individuals in which case a 12 month follow-up CT would be advised. PLEURAL SPACES: There is no pleural effusion, pneumothorax or pleural based mass. VISUALIZED UPPER ABDOMEN: The limited visualized upper abdominal structures appear normal. OSSEOUS STRUCTURES: Age-appropriate appearance. No acute fracture or destructive process. TUBES and LINES: None. IMPRESSION: 1. There is no evidence of pulmonary embolus. 2. Minimal bibasilar subsegmental atelectasis. 3. There is a 12 millimeter right middle lobe nodule that is characteristically benign, either a partially calcified hamartoma or partially calcified granuloma. 4. Indeterminate but probably benign left lower lobe nodule measuring 4 millimeters. These generally do not require follow-up except in high-risk individuals in which case a 12 month follow-up CT would be recommended Please note that all CT scans at this facility use dose modulation, iterative reconstruction, and/or weight-based dosing when appropriate to reduce radiation dose to as low as reasonably achievable. Dictated by Kaveh Troy MD @ Apr 12 2020 2:53PM Signed by Dr. Kaveh Troy @ Apr 12 2020 3:01PM
--- NOTE | 2020-04-12 15:10 | CT ---
Indication: Right anterior neck pain, limited range of motion, recent general anesthesia Technique: Contrast enhanced axial CT imaging through the neck. 100 mL Isovue 370 contrast agent was administered intravenously. Sagittal and coronal reconstructions are provided. Comparison: None Findings: There is no suspicious neck mass or lymphadenopathy. There is no neck hematoma or fat stranding. The parotid and submandibular glands are unremarkable. There is mild diffuse enlargement of the thyroid gland. There is normal contour of the pharyngeal mucosa. The parapharyngeal fat is preserved. There is no retropharyngeal edema. The oral cavity, tongue, and floor of mouth are unremarkable. No abnormality seen with the under seal operator spaces. The larynx and visualized trachea are unremarkable. The visualized aortic arch, carotid arteries, and vertebral arteries are unremarkable. The internal jugular veins are patent. The visualized paranasal sinuses and mastoid air cells are aerated. No significant abnormality is demonstrated within the visualized orbits and intracranial compartment. The included lung apices are clear. There is no significant abnormality of the cervical spine. Impression: 1. No acute abnormality demonstrated in the neck. No neck mass, lymphadenopathy, or hematoma. 2. Mild diffuse enlargement of the thyroid gland. Follow up thyroid ultrasound is recommended as an outpatient. Please note that all CT scans at this facility use dose modulation, iterative reconstruction, and/or weight-based dosing when appropriate to reduce radiation dose to as low as reasonably achievable. Dictated by Elkin Graham MD @ Apr 12 2020 2:59PM Signed by Dr. Elkin Graham @ Apr 12 2020 3:08PM
[2020-04-12 17:28] VITALS: BP 106/64; PULSE 55
[2020-04-12] MEDS ORDERED: Iopamidol 755 MG/ML 500 ML Multipack Bottle IVPUSH STA (19:42)
== END 2020-04-12 17:28 | disposition home or self-care (01) ==
LOC: MW.ED 11:44
DX: R91.1 Solitary pulmonary nodule (principal); R91.8 Other nonspecific abnormal finding of lung field; M54.2 Cervicalgia; R07.89 Other chest pain; Z88.8 Allergy status to other drugs, medicaments and biological substances; Z91.040 Latex allergy status; Z91.048 Other nonmedicinal substance allergy status; Z77.22 Contact with and (suspected) exposure to environmental tobacco smoke (acute) (chronic)
CPT/HCPCS: 36415; 70491; 71046; 71275; 80053; 84443; 84484; 84703; 85025; 85610; 93005; 99285; A9270; Q9967; 93010; 99284

== ENCOUNTER 2020-09-12 13:32 | Emergency (ER) | payer BC ==
--- NOTE | 2020-09-12 13:55 | EDM.PDOC ---
ED HPI GENERAL MEDICAL PROBLEM - General Chief Complaint: General Stated Complaint: EXCESSIVE BLEEDING Time Seen by Provider: 09/12/20 13:33 Source of Information: Reports: Patient History Limitations: Reports: No Limitations - History of Present Illness INITIAL COMMENTS - FREE TEXT/NARRATIVE: HISTORY AND PHYSICAL: History of present illness: Patient is a 45-year-old female who presents to the emergency room with concerns of excessive vaginal bleeding. She states she started her menses 3 days ago, started normal. Today around 1245 she went to stand up and felt a gush of blood and had gone through her underwear and pants. She did feel dizzy during this episode and was concerned she bled an excessive amount. She did not pass out or black out. No previous history of heavy menses. No concern for . No concern for STI. Patient denies any fever, chills, headache, change in vision, syncope or near syncope. Denies any chest pain, back pain, shortness of breath or cough. Denies any abdominal pain, nausea, vomiting, diarrhea, constipation or dysuria. Has not noted any blood in urine or stool. No recent pelvic activity nor pelvic trauma. Patient has been eating and drinking appropriately. Review of systems: As per history of present illness and below otherwise all systems reviewed and negative. Past medical history: As per history of present illness and as reviewed below otherwise noncontributory. Surgical history: As per history of present illness and as reviewed below otherwise noncontributory. Social history: See social history for further information Family history: As per history of present illness and as reviewed below otherwise noncontributory. Physical exam: General: Well developed and well nourished 45-year-old female. Alert and orientated x 3. Nontoxic in appearance and in no acute distress. Vital signs are stable and have been reviewed by me. Nursing notes were reviewed. HEENT: Atraumatic, normocephalic, pupils equal and reactive bilaterally, negative for conjunctival pallor or scleral icterus, mucous membranes moist, trachea midline. No drooling or trismus noted. No meningeal signs. No hot potato voice noted. Lungs: Clear to auscultation bilaterally. No wheezes, rales, or rhonchi. Chest nontender. Normal work of breathing, no accessory muscles used. Heart: S1S2, regular rate and rhythm without overt murmur, gallops, or rubs. No JVD. No peripheral edema Abdomen: Soft, nondistended, nontender. Normoactive bowel sounds. Negative for masses or costovertebral tenderness. Genitourinary/Rectal: This was done with consent and a stencil machine operator at the bedside. External genitalia within normal limits. Patient does have a moderate size clot and blood in the vaginal vault, this was wiped away with a hamlin tail. Mini mal bleeding coming from the cervical os which is closed. Patient tolerated well. Skin: Intact, warm, dry. No lesions or rashes noted. Hematologic: No petechiae or purpra. Mucosa appropriate color and normal nail bed color and refill. Extremities: Atraumatic, moves all extremities per self without difficulty or deficits, negative for cords or calf pain. Neurovascular unremarkable. Neuro: Awake, alert, oriented. Cranial nerves II through XII unremarkable. Cerebellum unremarkable. Motor and sensory unremarkable throughout. Exam nonfocal. Psychiatric: Mood and affect are appropriate. Normal thought process. Answering questions appropriately. Notes: *This patient was seen and evaluated during the 2019 SARS-CoV-2 novel coronavirus pandemic period. Community viral transmission is ongoing at time of this encounter and the emergency department is operating under pandemic response procedures. Pelvic exam was completed, small amount of blood coming from the os. Her orthostatic vital signs are within normal limits, no significant findings. H&H is unremarkable. Patient states she is anxious and requesting Ativan as she does take this as needed although does not have it with her. We will do an ultrasound for further evaluation. Lab work is unremarkable. Patient has voided twice and has failed to give a urine sample. Was finally able to give a sample, negative UA. Ultrasound shows no acute abnormality. Normal blood flow to both ovaries. Normal endometrium. Small uterine fibroid. Vitals have been stable while here. I have talked with the patient about today's findings, in addition to providing specific details for plan of care. Reassessment at the time of disposition demonstrates that the patient is in no acute distress. The patient is stable for discharge, counseling was provided and we discussed in great detail signs and symptoms that would prompt them to return to the Emergency Department. Medication, follow up and supportive care measures were reviewed and discussed. Voices understanding and is agreeable to plan of care. Denies any further questions or concerns at this time. Diagnostics: CBC, CMP, UA, hCGU, transvaginal ultrasound Therapeutics: IV fluids, Ativan p.o. Prescription: None Impression: Menorrhagia Plan: 1. You were evaluated today on an emergent basis. Your lab work, ultrasound and vital signs are within normal limits. Continue to monitor you symptoms and if you continue to have heavy menses, you should follow up OBGYN for further evaluation. If your symptoms should worsen, new symptoms develop or any of the signs and symptoms we discussed should arise please return to the emergency room or call 911 (if needed). 2. You can alternate Tylenol and ibuprofen as needed for pain and fever management. 3. We encourage you to follow up with OBGYN in the next few days for re- evaluation and further care/management. Definitive disposition and diagnosis as appropriate pending reevaluation and review of above. pelvic cramping Pain Score (Numeric/FACES): 8 - Related Data Allergies Allergy/AdvReac Type Severity Reaction Status Date / Time drospirenone [From ANDREW ] Allergy Chest Pain Verified 09/12/20 13:48 ethinyl estradiol Allergy Chest Pain Verified 09/12/20 13:48 [From ANDREW ] Latex, Natural Rubber Allergy Rash Verified 09/12/20 13:48 seasonal/pets Allergy Cannot Uncoded 09/12/20 13:48 Remember trace metals Allergy Rash Uncoded 09/12/20 13:48 Home Meds: Home Meds Fluticasone Propionate [Flonase] 16 gm NS ASDIRECTED 09/20/19 [History] Albuterol [Ventolin HFA] 1 puff INH ASDIRECTED 09/12/20 [History] LORazepam [Ativan] 0.5 mg PO ASDIRECTED 09/12/20 [History] Past Medical History - Past Health History Medical/Surgical History: Denies Medical/Surgical History HEENT History: Reports: Impaired Vision, Sinusitis Respiratory History: Reports: Asthma Genitourinary History: Reports: Renal Calculus Neurological History: Reports: Migraines Other Neuro History: Classical migraine headache Psychiatric History: Reports: Anxiety, Panic Attack, PTSD Endocrine/Metabolic History: Reports: Hyperthyroidism - Infectious Disease History Infectious Disease History: Reports: None Other Infectious Disease History: herpes simplex 1 - Past Surgical History HEENT Surgical History: Reports: Laser Surgery, Other (See Below) Other HEENT Surgeries/Procedures: deviated septum surgery. Nasal stents placed Social & Family History - Family History Family Medical History: No Pertinent Family History - Caffeine Use Caffeine Use: Reports: Coffee ED ROS GENERAL - Review of Systems Review Of Systems: Comprehensive ROS is negative, except as noted in HPI. ED EXAM, GENERAL - Physical Exam Exam: See Below (See dictation) Course - Vital Signs Last Recorded V/S: Last Vital Signs Temp 98.6 F 09/12/20 13:49 Pulse 71 09/12/20 16:29 Resp 15 09/12/20 16:29 BP 106/76 09/12/20 16:29 Pulse Ox 96 09/12/20 16:29 Orthostatic Blood Pressure [ 133/83 Standing] Orthostatic Blood Pressure [ 128/76 Sitting] Orthostatic Blood Pressure [ 118/72 Supine] - Orders/Labs/Meds Orders: Active Orders 24 hr Category Date Time Status Orthostatic Vital Signs [RC] ASDIRECTED Care 09/12/20 13:50 Active Sodium Chloride 0.9% [Normal Saline] 1,000 ml Med 09/12/20 14:00 Active IV ASDIRECTED Medication Orders Sodium Chloride (Normal Saline) 1,000 mls @ 999 mls/hr IV ASDIRECTED WHIT Last Admin: 09/12/20 14:00 Dose: 999 mls/hr Documented by: [id number] Labs: Laboratory Tests 09/12/20 09/12/20 09/12/20 Range/Units 13:45 13:45 13:45 WBC 7.99 (4.0-11.0) K/uL RBC 4.97 (4.30-5.90) M/uL Hgb 13.2 (12.0-16.0) g/dL Hct 40.8 (36.0-46.0) % MCV 82.1 (80.0-98.0) fL MCH 26.6 L (27.0-32.0) pg MCHC 32.4 (31.0-37.0) g/dL RDW Std Deviation 39.4 (28.0-62.0) fl RDW Coeff of Prince 13 (11.0-15.0) % Plt Count 285 (150-400) K/uL MPV 9.90 (7.40-12.00) fL Neut % (Auto) 57.7 (48.0-80.0) % Lymph % (Auto) 33.4 (16.0-40.0) % Bailey % (Auto) 7.5 (0.0-15.0) % Eos % (Auto) 1.3 (0.0-7.0) % Baso % (Auto) 0.1 (0.0-1.5) % Neut # (Auto) 4.6 (1.4-5.7) K/uL Lymph # (Auto) 2.7 H (0.6-2.4) K/uL Bailey # (Auto) 0.6 (0.0-0.8) K/uL Eos # (Auto) 0.1 (0.0-0.7) K/uL Baso # (Auto) 0.0 (0.0-0.1) K/uL Nucleated RBC % 0.0 /100WBC Nucleated RBCs # 0 K/uL Sodium 137 (136-145) mmol/L Potassium 3.5 (3.5-5.1) mmol/L Chloride 100 (98-107) mmol/L Carbon Dioxide 28.4 (21.0-32.0) mmol/L BUN 21 H (7.0-18.0) mg/dL Creatinine 1.2 H (0.6-1.0) mg/dL Est Cr Clr Drug Dosing 60.98 mL/min Estimated GFR (MDRD) 49.0 ml/min Glucose 166 H (74-106) mg/dL Calcium 9.0 (8.5-10.1) mg/dL Total Bilirubin 0.5 (0.2-1.0) mg/dL AST 18 (15-37) IU/L ALT 30 (14-63) IU/L Alkaline Phosphatase 93 (46-116) U/L Total Protein 8.1 (6.4-8.2) g/dL Albumin 3.6 (3.4-5.0) g/dL Globulin 4.5 H (2.6-4.0) g/dL Albumin/Globulin Ratio 0.8 L (0.9-1.6) HCG, Qual NEGATIVE (NEG) Urine Color Urine Appearance Urine pH (5.0-8.0) Ur Specific [place] (1.001-1.035) Urine Protein (NEGATIVE) mg/dL Urine Glucose (UA) (NEGATIVE) mg/dL Urine Ketones (NEGATIVE) mg/dL Urine Occult Blood (NEGATIVE) Urine Nitrite (NEGATIVE) Urine Bilirubin (NEGATIVE) Urine Urobilinogen (<2.0) EU/dL Ur Leukocyte Esterase (NEGATIVE) Urine RBC (0-2/HPF) Urine WBC (0-5/HPF) Ur Epithelial Cells (NONE-FEW) Urine Bacteria (NEGATIVE) 09/12/20 Range/Units 16:24 WBC (4.0-11.0) K/uL RBC (4.30-5.90) M/uL Hgb (12.0-16.0) g/dL Hct (36.0-46.0) % MCV (80.0-98.0) fL MCH (27.0-32.0) pg MCHC (31.0-37.0) g/dL RDW Std Deviation (28.0-62.0) fl RDW Coeff of Prince (11.0-15.0) % Plt Count (150-400) K/uL MPV (7.40-12.00) fL Neut % (Auto) (48.0-80.0) % Lymph % (Auto) (16.0-40.0) % Bailey % (Auto) (0.0-15.0) % Eos % (Auto) (0.0-7.0) % Baso % (Auto) (0.0-1.5) % Neut # (Auto) (1.4-5.7) K/uL Lymph # (Auto) (0.6-2.4) K/uL Bailey # (Auto) (0.0-0.8) K/uL Eos # (Auto) (0.0-0.7) K/uL Baso # (Auto) (0.0-0.1) K/uL Nucleated RBC % /100WBC Nucleated RBCs # K/uL Sodium (136-145) mmol/L Potassium (3.5-5.1) mmol/L Chloride (98-107) mmol/L Carbon Dioxide (21.0-32.0) mmol/L BUN (7.0-18.0) mg/dL Creatinine (0.6-1.0) mg/dL Est Cr Clr Drug Dosing mL/min Estimated GFR (MDRD) ml/min Glucose (74-106) mg/dL Calcium (8.5-10.1) mg/dL Total Bilirubin (0.2-1.0) mg/dL AST (15-37) IU/L ALT (14-63) IU/L Alkaline Phosphatase (46-116) U/L Total Protein (6.4-8.2) g/dL Albumin (3.4-5.0) g/dL Globulin (2.6-4.0) g/dL Albumin/Globulin Ratio (0.9-1.6) HCG, Qual (NEG) Urine Color YELLOW Urine Appearance SLT CLOUDY Urine pH 6.5 (5.0-8.0) Ur Specific [place] 1.015 (1.001-1.035) Urine Protein NEGATIVE (NEGATIVE) mg/dL Urine Glucose (UA) NEGATIVE (NEGATIVE) mg/dL Urine Ketones NEGATIVE (NEGATIVE) mg/dL Urine Occult Blood LARGE H (NEGATIVE) Urine Nitrite NEGATIVE (NEGATIVE) Urine Bilirubin NEGATIVE (NEGATIVE) Urine Urobilinogen 0.2 (<2.0) EU/dL Ur Leukocyte Esterase NEGATIVE (NEGATIVE) Urine RBC 1-5 (0-2/HPF) Urine WBC 0-2 (0-5/HPF) Ur Epithelial Cells OCCASIONAL (NONE-FEW) Urine Bacteria RARE (NEGATIVE) Meds: Medications Generic Name Dose Route Start Last Admin Trade Name Freq PRN Reason Stop Dose Admin Sodium Chloride 1,000 mls @ 999 mls/hr 09/12/20 14:00 09/12/20 14:00 Normal Saline IV 999 mls/hr ASDIRECTED WHIT Administration Discontinued Medications Generic Name Dose Route Start Last Admin Trade Name Freq PRN Reason Stop Dose Admin Lorazepam 0.5 mg 09/12/20 14:13 09/12/20 16:28 Lorazepam 0.5 Mg Tab PO 09/12/20 14:14 Not Given ONETIME ONE Departure - Departure Time of Disposition: 16:39 Disposition: Home, Self-Care 01 Clinical Impression: Menorrhagia Qualifiers: Menorrhagia type: with regular cycle Qualified Code(s): N92.0 - Excessive and frequent menstruation with regular cycle - Discharge Information Instructions: Menorrhagia, [id number] Referrals: Guzman Fry MD [Primary Care Provider] - Forms: ED Department Discharge Additional Instructions: The following information is given to patients seen in the emergency department who are being discharged to home. This information is to outline your options for follow-up care. We provide all patients seen in our emergency department with a follow-up referral. The need for follow-up, as well as the timing and circumstances, are variable depending upon the specifics of your emergency department visit. If you don't have a primary care physician on staff, we will provide you with a referral. We always advise you to contact your personal physician following an emergency department visit to inform them of the circumstance of the visit and for follow-up with them and/or the need for any referrals to a consulting specialist. The emergency department will also refer you to a specialist when appropriate. This referral assures that you have the opportunity for follow-up care with a specialist. All of these measure are taken in an effort to provide you with optimal care, which includes your follow-up. Under all circumstances we always encourage you to contact your private physician who remains a resource for coordinating your care. When calling for follow-up care, please make the office aware that this follow-up is from your recent emergency room visit. If for any reason you are refused follow-up, please contact the [facility] Emergency Department at and asked to speak to the emergency department charge nurse. [facility] [address] [place] [address] [place] [address] Thank you for choosing the [facility] emergency department in [place] for your medical needs today. It was a pleasure caring for you. Today you were seen in the emergency department for heavy vaginal bleeding. 1. You were evaluated today on an emergent basis. Your lab work, ultrasound and vital signs are within normal limits. Continue to monitor you symptoms and if you continue to have heavy menses, you should follow up OBGYN for further evaluation. If your symptoms should worsen, new symptoms develop or any of the signs and symptoms we discussed should arise please return to the emergency room or call 911 (if needed). 2. You can alternate Tylenol and ibuprofen as needed for pain and fever management. 3. We encourage you to follow up with OBGYN in the next few days for re- evaluation and further care/management. Sepsis Event Note (ED) - Focused Exam Vital Signs: Vital Signs Temp Pulse Resp BP Pulse Ox 09/12/20 16:29 71 15 106/76 96 09/12/20 13:49 98.6 F 73 22 H 140/86 98 - My Orders Last 24 Hours: My Active Orders 09/12/20 13:50 Orthostatic Vital Signs [RC] ASDIRECTED 09/12/20 14:00 Sodium Chloride 0.9% [Normal Saline] 1,000 ml IV ASDIRECTED - Assessment/Plan Last 24 Hours: My Active Orders 09/12/20 13:50 Orthostatic Vital Signs [RC] ASDIRECTED 09/12/20 14:00 Sodium Chloride 0.9% [Normal Saline] 1,000 ml IV ASDIRECTED
[2020-09-12] MEDS ORDERED: Sodium Chloride 0.9% 1,000 ML IV SCH (14:00)
[2020-09-12] MEDS ORDERED: LORazepam 0.5 MG Tab PO ONE (14:13)
[2020-09-12 14:17] LABS: CARBON DIOXIDE,CO2 28.4 mmol/L (21.0-32.0); POTASSIUM,K 3.5 mmol/L (3.5-5.1)
--- NOTE | 2020-09-12 15:50 | US ---
INDICATION: Heavy vaginal bleeding, dizziness TECHNIQUE: Ultrasound pelvis transvaginal for better assessment or to better visualize the endometrium. Real-time sonographic images with spectral and color Doppler imaging of the ovaries were obtained. COMPARISON: None FINDINGS: Uterus: 8.8 x 6.1 x 4.8 cm. There is a superior posterior uterine fibroid measuring 1.0 cm. Prominent nabothian cysts are noted. Endometrium: Transvaginal imaging was performed to better evaluate the endometrium. 4 mm in thickness. No sign of endometrial mass or fluid. Right ovary: 2.6 x 1.9 x 2.4 cm. No ovarian or adnexal masses. Normal blood flow. Left ovary: 2.5 x 2.9 x 1.3 cm. No ovarian or adnexal masses. Normal blood flow. Cul-de-sac: No significant free fluid. IMPRESSION: No acute abnormality. Normal endometrium. Small uterine fibroid. Dictated by Emilia Cheng MD @ Sep 12 2020 3:48PM Signed by Dr. Emilia Cheng @ Sep 12 2020 3:48PM
[2020-09-12 16:30] VITALS: BP 106/76; PULSE 71
== END 2020-09-12 16:52 | disposition home or self-care (01) ==
LOC: MW.ED 13:32
DX: N92.0 Excessive and frequent menstruation with regular cycle (principal); J45.909 Unspecified asthma, uncomplicated; Z91.048 Other nonmedicinal substance allergy status; Z88.8 Allergy status to other drugs, medicaments and biological substances
CPT/HCPCS: 36415; 76830; 80053; 81001; 84703; 85025; 99284; J7030; 99283

== ENCOUNTER 2021-01-25 13:07 | Emergency (ER) | payer BC ==
--- NOTE | 2021-01-25 13:16 | EDM.PDOC ---
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 She coughed a bit afterwards and noticed a funny taste in her mouth. She rinse her mouth out and took a shower but noted persistent mild nonproductive cough and a burning sensation in her chest, lips, throat. She has not had any difficulty with breathing. She denies any difficulty with swallowing. She went to the walk-in clinic was referred to emergency department. Lip Pain Score (Numeric/FACES): 5 - Related Data Allergies Allergy/AdvReac Type Severity Reaction Status Date / Time drospirenone [From ANDREW 28] Allergy Chest Pain Verified 01/25/21 13:29 ethinyl estradiol Allergy Chest Pain Verified 01/25/21 13:29 [From ANDREW 28] Latex, Natural Rubber Allergy Rash Verified 01/25/21 13:29 seasonal/pets Allergy Cannot Uncoded 01/25/21 13:29 Remember trace metals Allergy Rash Uncoded 01/25/21 13:29 Home Meds: Home Meds metroNIDAZOLE [Flagyl] 500 mg PO ASDIRECTED 01/25/21 [History] Past Medical History - Past Health History Medical/Surgical History: Denies Medical/Surgical History HEENT History: Reports: Impaired Vision, Sinusitis Respiratory History: Reports: Asthma Genitourinary History: Reports: Renal Calculus Neurological History: Reports: Migraines Other Neuro History: Classical migraine headache Psychiatric History: Reports: Anxiety, Panic Attack, PTSD Endocrine/Metabolic History: Reports: Hyperthyroidism - Infectious Disease History Infectious Disease History: Reports: None Other Infectious Disease History: herpes simplex 1 - Past Surgical History HEENT Surgical History: Reports: Laser Surgery, Other (See Below) Other HEENT Surgeries/Procedures: deviated septum surgery. Nasal stents placed Social & Family History - Family History Family Medical History: No Pertinent Family History - Caffeine Use Caffeine Use: Reports: Coffee ED ROS GENERAL - Review of Systems Review Of Systems: Comprehensive ROS is negative, except as noted in HPI. ED EXAM, GENERAL - Physical Exam Exam: See Below Exam Limited By: No Limitations General Appearance: Alert, WD/WN, No Apparent Distress Ears: Hearing Grossly Normal Throat/Mouth: Normal Inspection, Normal Lips, Normal Oropharynx, Normal Voice, No Airway Compromise Head: Atraumatic, Normocephalic Neck: Normal Inspection Respiratory/Chest: No Respiratory Distress, Lungs Clear, Normal Breath Sounds, No Accessory Muscle Use Cardiovascular: Normal Peripheral Pulses, Regular Rate, Rhythm Back Exam: Normal Inspection Extremities: Normal Inspection Neurological: Alert, Normal Cognition, Normal Gait Psychiatric: Normal Affect, Normal Mood Skin Exam: Warm, Dry, Intact, Normal Color #1 Interpretation EKG Date: 01/25/21 Time: 13:26 Rhythm: NSR Rate (Beats/Min): 68 [place]: Normal P-Wave: Present QRS: Normal ST-T: Normal QT: Normal ME/PQ Interval: 154 Comparison: NA - No Prior EKG EKG Interpretation Comments: normal EKG, no ischemic changes Course - Vital Signs Last Recorded V/S: Last Vital Signs Temp 97.6 F 01/25/21 13:30 Pulse 81 01/25/21 13:30 Resp 18 01/25/21 13:30 BP 142/100 H 01/25/21 13:30 Pulse Ox 98 01/25/21 13:30 - Orders/Labs/Meds Orders: Active Orders 24 hr Category Date Time Status EKG 12 Lead [EKG Documentation Completion] [RC] STAT Care 01/25/21 13:35 Active - Re-Assessments/Exams Free Text/Narrative Re-Assessment/Exam: 01/25/21 13:37 We did reach out to poison control who has no specific recommendations, notes that injury is unlikely to be clinically significant. EKG is unremarkable. Wi ll get chest x-ray and reassess. 01/25/21 14:37 Chest x-ray is unremarkable. Will discharge patient with PMD follow-up. Return precautions discussed at length. Departure - Departure Time of Disposition: 14:38 Disposition: Home, Self-Care 01 Condition: Good Clinical Impression: Inhalation injury due to chemical - Discharge Information Instructions: Chemical Inhalation Injury, Adult, COVID-19 Vaccine Information Referrals: Guzman Fry MD [Primary Care Provider] - Additional Instructions: Your EKG and chest x-ray are unremarkable. You may have a slight cough and abnormal taste but this should go away with time. If you develop any difficulty breathing or difficulty swallowing then please come back to the emergency department immediately. The best way to protect yourself and others from COVID-19 is to take one of the three safe and effective vaccines that have been proven to substantially reduce risk of both infection and severe illness. [facility] is currently offering COVID vaccinations for anyone age 18 and older. To schedule an appointment call [phone]. Or to be contacted by our clinics about scheduling your vaccine online, please go to [email or web address] The following information is given to patients seen in the emergency department who are being discharged to home. This information is to outline your options for follow-up care. We provide all patients seen in our emergency department with a follow-up referral. The need for follow-up, as well as the timing and circumstances, are variable depending upon the specifics of your emergency department visit. If you don't have a primary care physician on staff, we will provide you with a referral. We always advise you to contact your personal physician following an emergency department visit to inform them of the circumstance of the visit and for follow-up with them and/or the need for any referrals to a consulting specialist. The emergency department will also refer you to a specialist when appropriate. This referral assures that you have the opportunity for follow-up care with a specialist. All of these measure are taken in an effort to provide you with optimal care, which includes your follow-up. Under all circumstances we always encourage you to contact your private physician who remains a resource for coordinating your care. When calling for follow-up care, please make the office aware that this follow-up is from your recent emergency room visit. If for any reason you are refused follow-up, please contact the [facility] Emergency Department at and asked to speak to the emergency department charge nurse. Please follow up with your primary care physician. If you do not have a primary care physician, see below: [facility] [address] [place] [id number] [facility] [address] [place] [address] Sepsis Event Note (ED) - Focused Exam Vital Signs: Vital Signs Temp Pulse Resp BP Pulse Ox 01/25/21 13:30 97.6 F 81 18 142/100 H 98 - My Orders Last 24 Hours: My Active Orders 01/25/21 13:35 EKG 12 Lead [EKG Documentation Completion] [RC] STAT - Assessment/Plan Last 24 Hours: My Active Orders 01/25/21 13:35 EKG 12 Lead [EKG Documentation Completion] [RC] STAT
--- NOTE | 2021-01-25 14:27 | CR ---
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 The heart silhouette is normal in size and morphology. Lung: Both lungs are unremarkable in appearance. There is a stable 1 cm calcified granuloma in the right lung base. No sign of pleural effusion seen. No pneumothorax is identified. Bone and Soft tissue: Unremarkable for age. IMPRESSION: 1. No acute cardiopulmonary disease is seen. Dictated by Blas Becker MD @ 01/25/2021 2:24:46 PM Dictated by: Blas Becker MD @ 01/25/2021 14:24:50 (Electronically Signed)
[2021-01-25 14:52] VITALS: BP 140/75; PULSE 69
== END 2021-01-25 14:51 | disposition home or self-care (01) ==
LOC: MW.ED 13:07
DX: T65.891A Toxic effect of other specified substances, accidental (unintentional), initial encounter (principal); J45.909 Unspecified asthma, uncomplicated; Z88.8 Allergy status to other drugs, medicaments and biological substances; Z91.040 Latex allergy status; Z91.048 Other nonmedicinal substance allergy status
CPT/HCPCS: 71045; 71045-26; 93005; 99283-25

== ENCOUNTER 2022-12-14 01:06 | Emergency (ER) | payer BC ==
[2022-12-14] MEDS ORDERED: Midazolam 5 MG/ML SDV ONE (01:22)
[2022-12-14] MEDS ORDERED: Midazolam 5 MG/ML SDV IM STA (01:29)
[2022-12-14] MEDS ORDERED: Midazolam 5 MG/ML SDV IM ONE (01:30)
[2022-12-14] MEDS ORDERED: droPERidol 5 MG/2 ML SDV IM STA (01:30)
[2022-12-14 02:07] LABS: BASOPHILS PERCENT AUTO 0.3 % (0.0-1.5); EOSINOPHILS ABSOLUTE AUTO 0.1 K/uL (0.0-0.7); EOSINOPHILS PERCENT AUTO 0.8 % (0.0-7.0); HEMATOCRIT 38.5 % (36.0-46.0); HEMOGLOBIN 12.7 g/dL (12.0-16.0); LYMPHOCYTES ABSOLUTE AUTO 1.8 K/uL (0.6-2.4); LYMPHOCYTES PERCENT AUTO 28.4 % (16.0-40.0); MEAN CORPUSCULAR HEMOGLOBIN 26.7 pg (27.0-32.0); MEAN CORPUSCULAR VOLUME 80.9 fL (80.0-98.0); MONOCYTES ABSOLUTE AUTO 0.3 K/uL (0.0-0.8); MONOCYTES PERCENT AUTO 4.3 % (0.0-15.0); NEUTROPHILS ABSOLUTE AUTO 4.3 K/uL (1.4-5.7); NEUTROPHILS PERCENT AUTO 66.2 % (48.0-80.0); NRBC ABSOLUTE 0 K/uL; PLATELET COUNT,PLT 272 K/uL (150-400); RED BLOOD CELL COUNT 4.76 M/uL (4.30-5.90); WHITE BLOOD CELL COUNT,WBC 6.48 K/uL (4.0-11.0)
[2022-12-14] MEDS ORDERED: Sodium Chloride 0.9% 1,000 ML IV ONE (02:25)
[2022-12-14] MEDS ORDERED: Lactated Ringers 1,000 ML IV ONE (02:25)
[2022-12-14 02:42] LABS: AMPHETAMINES SCREEN, URINE NEGATIVE (CUTOFF=500); BARBITURATE SCREEN,URINE NEGATIVE (CUTOFF=200); BENZODIAZEPINES SCREEN,URINE NEGATIVE (CUTOFF=150); BUPRENORPHINE SCREEN,URINE NEGATIVE (CUTOFF=10); METHADONE SCREEN, URINE NEGATIVE (CUTOFF=200); METHAMPHETAMINES SCREEN, URINE NEGATIVE (CUTOFF=500); OXYCODONE SCREEN,URINE NEGATIVE (CUT0FF=100); PCP SCREEN,URINE NEGATIVE (CUTOFF=25); PROPOXYPHENE SCREEN,URINE NEGATIVE (CUTOFF=300); THC SCREEN,URINE 20 NG/ML NEGATIVE (CUTOFF=50)
[2022-12-14 02:50] LABS: A/G RATIO 0.8 (0.9-1.6); ALANINE AMINOTRANSFERASE,ALT 29 IU/L (14-63); ALBUMIN 3.3 g/dL (3.4-5.0); ALKALINE PHOSPHATASE 88 U/L (46-116); ASPARTATE AMNIOTRANSFERASE,AST 20 IU/L (15-37); BILIRUBIN TOTAL 0.2 mg/dL (0.2-1.0); BLOOD UREA NITROGEN,BUN 16 mg/dL (7.0-18.0); CALCIUM 8.5 mg/dL (8.5-10.1); CARBON DIOXIDE,CO2 22.1 mmol/L (21.0-32.0); CHLORIDE,CL 107 mmol/L (98-107); CREATININE 1.2 mg/dL (0.6-1.0); ETHANOL BLOOD MEDICAL 249 mg/dL; GLUCOSE RANDOM 156 mg/dL (74-106); POTASSIUM,K 3.3 mmol/L (3.5-5.1); PROTEIN TOTAL,TP 7.3 g/dL (6.4-8.2); SODIUM,NA 143 mmol/L (136-145); TSH ULTRASENSITIVE 2.91 uIU/mL (0.36-3.74)
[2022-12-14 02:54] LABS: ESTIMATED GFR 57 mL/min (>60)
[2022-12-14 04:08] VITALS: BP 101/58; PULSE 67
== END 2022-12-14 04:07 ==
LOC: MW.ED 01:06
DX: R45.1 Restlessness and agitation (principal); F10.10 Alcohol abuse, uncomplicated; J45.909 Unspecified asthma, uncomplicated; Z88.8 Allergy status to other drugs, medicaments and biological substances; Z91.09 Other allergy status, other than to drugs and biological substances; Z91.040 Latex allergy status; Y90.8 Blood alcohol level of 240 mg/100 ml or more
CPT/HCPCS: 36415; 70450; 71045; 80053; 80305; 80307; 81025; 84443; 85025; 93005; 96360; 96372; 99285; J1790; J2250; J7030; J7120; 93010; 99284

== ENCOUNTER 2022-12-18 08:07 | Emergency (ER) | payer BC ==
[2022-12-18] MEDS ORDERED: Metoclopramide 10 MG/2 ML SDV IVPUSH ONE (08:33)
[2022-12-18] MEDS ORDERED: Ketorolac 30 MG/ML SDV IVPUSH ONE (08:33)
[2022-12-18] MEDS ORDERED: diphenhydrAMINE 50 MG/ML SDV IVPUSH ONE (08:33)
[2022-12-18] MEDS ORDERED: Sodium Chloride 0.9% 1,000 ML IV ONE (08:33)
[2022-12-18 09:10] LABS: BASOPHILS PERCENT AUTO 0.4 % (0.0-1.5); EOSINOPHILS ABSOLUTE AUTO 0.1 K/uL (0.0-0.7); EOSINOPHILS PERCENT AUTO 1.4 % (0.0-7.0); HEMATOCRIT 40.3 % (36.0-46.0); LYMPHOCYTES ABSOLUTE AUTO 2.4 K/uL (0.6-2.4); LYMPHOCYTES PERCENT AUTO 31.2 % (16.0-40.0); MEAN CORPUSCULAR HEMOGLOBIN 26.1 pg (27.0-32.0); MEAN CORPUSCULAR HGB CONC 32.3 g/dL (31.0-37.0); MEAN CORPUSCULAR VOLUME 80.8 fL (80.0-98.0); MONOCYTES ABSOLUTE AUTO 0.7 K/uL (0.0-0.8); MONOCYTES PERCENT AUTO 8.5 % (0.0-15.0); NEUTROPHILS ABSOLUTE AUTO 4.5 K/uL (1.4-5.7); NEUTROPHILS PERCENT AUTO 58.5 % (48.0-80.0); NRBC ABSOLUTE 0 K/uL; PLATELET COUNT,PLT 279 K/uL (150-400); RED BLOOD CELL COUNT 4.99 M/uL (4.30-5.90); WHITE BLOOD CELL COUNT,WBC 7.73 K/uL (4.0-11.0)
[2022-12-18 09:47] LABS: ALBUMIN 3.3 g/dL (3.4-5.0); BILIRUBIN TOTAL 0.4 mg/dL (0.2-1.0); CALCIUM 8.8 mg/dL (8.5-10.1); CARBON DIOXIDE,CO2 28.7 mmol/L (21.0-32.0); EST CRCL DRUG DOSING (CG) 69.09 mL/min; MAGNESIUM 1.9 mg/dL (1.8-2.4); POTASSIUM,K 3.9 mmol/L (3.5-5.1); PROTEIN TOTAL,TP 7.2 g/dL (6.4-8.2)
[2022-12-18 09:51] LABS: A/G RATIO 0.9 (0.9-1.6)
[2022-12-18 10:06] VITALS: BP 116/84; PULSE 56
== END 2022-12-18 10:05 | disposition home or self-care (01) ==
LOC: MW.ED 08:07
DX: F07.81 Postconcussional syndrome (principal); J45.909 Unspecified asthma, uncomplicated; Z91.040 Latex allergy status; Z91.048 Other nonmedicinal substance allergy status; Z88.8 Allergy status to other drugs, medicaments and biological substances; Z79.899 Other long term (current) drug therapy
CPT/HCPCS: 36415; 70450; 80053; 83735; 85025; 96361; 96374; 96375; 99284; J1200; J1885; J2765; J7030

== ENCOUNTER 2025-03-11 12:51 | Emergency (ER) | payer BC ==
[2025-03-11 13:10] LABS: BASOPHILS ABSOLUTE AUTO 0.04 K/uL (0.00-0.20); BASOPHILS PERCENT AUTO 0.4 % (0.0-1.0); EOSINOPHILS ABSOLUTE AUTO 0.16 K/uL (0.00-0.45); EOSINOPHILS PERCENT AUTO 1.5 % (0.0-6.0); IMMATURE GRAN ABSOLUTE AUTO 0.04 K/uL (0.00-0.05); IMMATURE GRAN PERCENT AUTO 0.4 % (0.0-0.4); LYMPHOCYTES ABSOLUTE AUTO 2.85 K/uL (1.00-4.80); LYMPHOCYTES PERCENT AUTO 27.5 % (24.0-44.0); MEAN PLATELET VOLUME 9.1 fL (9.4-12.3); MONOCYTES ABSOLUTE AUTO 0.67 K/uL (0.00-0.80); MONOCYTES PERCENT AUTO 6.5 % (0.0-8.0); NEUTROPHILS ABSOLUTE AUTO 6.62 K/uL (1.80-7.70); NEUTROPHILS PERCENT AUTO 63.7 % (41.0-71.0); NRBC ABSOLUTE 0.00 K/uL (0.00-0.02); NRBC PERCENT 0.0 /100WBC (0.0-0.2); PLATELET COUNT,PLT 271 K/uL (150-400); RED BLOOD CELL COUNT 4.80 M/uL (4.10-5.30); WHITE BLOOD CELL COUNT,WBC 10.38 K/uL (3.9-11.3)
[2025-03-11 13:45] LABS: ALANINE AMINOTRANSFERASE,ALT 28.0 IU/L (14-63); ASPARTATE AMNIOTRANSFERASE,AST 20.0 IU/L (15-37); BILIRUBIN TOTAL 0.3 mg/dL (0.2-1.0); BLOOD UREA NITROGEN,BUN 22.0 mg/dL (7.0-18.0); CARBON DIOXIDE,CO2 27.3 mmol/L (21.0-32.0); CHLORIDE,CL 103.0 mmol/L (98-107); CREATININE 1.0 mg/dL (0.6-1.0); EST CRCL DRUG DOSING (CG) 69.4 mL/min; GLUCOSE RANDOM 132.0 mg/dL (74-106); POTASSIUM,K 4.0 mmol/L (3.5-5.1); PROTEIN TOTAL,TP 7.2 g/dL (6.4-8.2); SODIUM,NA 138.0 mmol/L (136-145)
[2025-03-11 14:15] LABS: A/G RATIO 0.9 (0.9-1.6); ESTIMATED GFR 69.0 mL/min (>60)
[2025-03-11 14:19] LABS: APPEARANCE,URINE CLEAR; GLUCOSE,URINE NEGATIVE (NEGATIVE); OCCULT BLOOD,URINE MODERATE (NEGATIVE)
[2025-03-11] MEDS: Ketorolac 30 MG/ML SDV IVPUSH ONE (14:27)
[2025-03-11] MEDS: Alum Hydrox/Mag Hydrox/Simeth 15 ML, Metoclopramide 5 MG, Lidocaine 2% 5 ML PO ONE (14:27)
[2025-03-11 14:46] LABS: EPITHELIAL CELLS,URINE RARE (NONE-FEW)
[2025-03-11 15:39] VITALS: BP 128/70; PULSE 80
== END 2025-03-11 16:06 | disposition home or self-care (01) ==
LOC: MW.ED 12:51
DX: R10.13 Epigastric pain (principal); J45.909 Unspecified asthma, uncomplicated; Z88.8 Allergy status to other drugs, medicaments and biological substances; Z79.899 Other long term (current) drug therapy; Z79.84 Long term (current) use of oral hypoglycemic drugs
CPT/HCPCS: 36415; 80053; 81001; 83690; 84484; 84703; 85025; 96361; 96374; 99284; A9270; J1885; J3490; J7030

== ENCOUNTER 2025-03-23 08:15 | Day surgery (SDC) | payer BC ==
[~2025-03-23 08:15] MED LIST: Sodium Chloride 0.9% 10 ML Syringe FLUSH PRN; Sodium Chloride 0.9% 2.5 ML Syringe FLUSH PRN
[2025-03-23] MEDS: Lactated Ringers 1,000 ML IV SCH (08:51)
[2025-03-23] MEDS ORDERED: propofoL 500 MG/50 ML 50 ML ONE (09:41)
[2025-03-23] MEDS ORDERED: Ondansetron 4 MG/2 ML SDV ONE (09:41)
[2025-03-23 13:20] VITALS: BP 100/65; PULSE 48
== END 2025-03-23 12:50 | disposition home or self-care (01) ==
LOC: MW.SDS 08:15
PROVIDERS: ATTEND Surgery
DX: D12.3 Benign neoplasm of transverse colon (principal); K29.50 Unspecified chronic gastritis without bleeding; E78.00 Pure hypercholesterolemia, unspecified; J45.909 Unspecified asthma, uncomplicated; K21.9 Gastro-esophageal reflux disease without esophagitis; E11.9 Type 2 diabetes mellitus without complications; F41.9 Anxiety disorder, unspecified; F32.A Depression, unspecified; Z79.84 Long term (current) use of oral hypoglycemic drugs; Z79.899 Other long term (current) drug therapy
CPT/HCPCS: 43239; 45380; 81025; 82947; J1596; J2003; J2405; J2704; J7120; 00813

== ENCOUNTER 2025-04-13 06:59 | Day surgery (SDC) | payer BC ==
[~2025-04-13 06:59] MED LIST changes: +ceFAZolin 2 GM in Water For Injection, Sterile 20 ML IVPUSH ONE
[2025-04-13] MEDS ORDERED: Ropivacaine 0.5% 5 MG/ML 30 ML SDV ONE (07:13)
[2025-04-13] MEDS ORDERED: fentaNYL 100 MCG/2 ML SDV ONE (07:14)
[2025-04-13] MEDS ORDERED: Propofol 200 MG/20 ML SDV ONE ×2 (07:14→10:23)
[2025-04-13] MEDS ORDERED: dexmedeTOMIDine HCl 200 MCG/2 ML SDV ONE (07:15)
[2025-04-13] MEDS: Lactated Ringers 1,000 ML IV SCH (07:43)
[2025-04-13] MEDS ORDERED: Scopalamine 1mg/3day Transdermal Patch TOP ONE (08:00)
[2025-04-13] MEDS ORDERED: fentaNYL 50 MCG/ML SDV IVPUSH PRN (08:58)
[2025-04-13] MEDS ORDERED: Naloxone 0.4 MG/ML SDV IVPUSH PRN (08:58)
[2025-04-13] MEDS ORDERED: Albuterol 0.083% 2.5 MG/3 ML Neb Soln NEB PRN (08:58)
[2025-04-13] MEDS ORDERED: Indocyanine Green 25 MG SDV ONE (09:14)
[2025-04-13] MEDS ORDERED: ePHEDrine 50 MG/ML SDV ONE (09:25)
[2025-04-13] MEDS ORDERED: Dexamethasone 4 MG/ML 5 ML MDV ONE (09:33)
[2025-04-13] MEDS ORDERED: Ondansetron 4 MG/2 ML SDV ONE (09:33)
[2025-04-13] MEDS ORDERED: Magnesium Sulfate (4.06 MEQ/ML) 5 GM/10 ML SDV ONE (09:34)
[2025-04-13] MEDS: Ondansetron 4 MG/2 ML SDV IVPUSH PRN (11:31)
[2025-04-13 13:25] VITALS: BP 121/65; PULSE 78
== END 2025-04-13 13:20 | disposition home or self-care (01) ==
LOC: MW.SDS 06:59
PROVIDERS: ATTEND Surgery
DX: K80.64 Calculus of gallbladder and bile duct with chronic cholecystitis without obstruction (principal); E78.00 Pure hypercholesterolemia, unspecified; F32.A Depression, unspecified; F41.9 Anxiety disorder, unspecified; K21.9 Gastro-esophageal reflux disease without esophagitis; E11.9 Type 2 diabetes mellitus without complications; Z91.040 Latex allergy status; Z88.8 Allergy status to other drugs, medicaments and biological substances; Z79.84 Long term (current) use of oral hypoglycemic drugs; Z79.899 Other long term (current) drug therapy
CPT/HCPCS: 47562; 64488; 81025; J0665; J0690; J1100; J1171; J2405; J2704; J2795; J3010; J3475; J7120; 00790; J3490